=== PATIENT | male | born 1935 | race Caucasian/White ===

== ENCOUNTER 2016-07-14 09:35 | Observation (INO) | payer MEDICARE ==
--- NOTE | 2016-07-14 10:14 | EDM.PDOC ---
ED HPI GENERAL MEDICAL PROBLEM - General Time Seen by Provider: 07/14/16 09:45 Source of Information: Reports: Patient History Limitations: Reports: No Limitations - History of Present Illness INITIAL COMMENTS - FREE TEXT/NARRATIVE: According to patient he has been having anemia for more than a year now. His hemoglobin was down to 7.1 on 07/12/16, his primary care physician ordered 1 unit of PRBCs on 07/12/16. He is here in the emergency room as he woke up today and felt a little dizzy when he was siting on the chair. He claims he feels weak , and dizzy when he stands or walks. no shortness of breath, chest pain or chest tightness. no Blood stools or hematuria. No fever or chills. No cough. Pt claims he has had colonoscopy, upper GI study and bone marrow biopsy and has not found anything abnormal. he does take iron pills. Onset: Today Onset Date: 07/14/16 Severity: Mild Associated Symptoms: Reports: Weakness. Denies: Chest Pain, Cough, Fever/Chills , Headaches, Nausea/Vomiting, Shortness of Breath, Syncope - Related Data Allergies Allergy/AdvReac Type Severity Reaction Status Date / Time No Known Allergies Allergy Verified 07/12/16 14:46 ED ROS GENERAL - Review of Systems Review Of Systems: See Below Constitutional: Denies: Fever, Chills, Weakness, Diaphoresis, Weight Gain HEENT: Reports: Vision Change. Denies: Eye Discharge, Throat Pain, Throat Swelling Respiratory: Denies: Shortness of Breath, Cough, Sputum Cardiovascular: Reports: Lightheadedness. Denies: Chest Pain, Edema GI/Abdominal: Denies: Abdominal Pain, Constipation, Hematochezia, Melena, Nausea , Vomiting : Denies: Frequency, Hematuria, Urgency Musculoskeletal: Denies: Joint Pain, Joint Swelling Skin: Reports: Pallor. Denies: Rash, Erythema ED EXAM, GENERAL - Physical Exam Exam: See Below Exam Limited By: No Limitations General Appearance: Alert, WD/WN, No Apparent Distress Eye Exam: Bilateral Eye: EOMI, PERRL Ears: Normal External Exam, Normal Canal, Hearing Grossly Normal, Normal TMs Ear Exam: Bilateral Ear: TM normal Nose: Normal Inspection, Normal Mucosa, No Blood Throat/Mouth: Normal Inspection, Normal Lips, Normal Teeth, Normal Gums, Normal Oropharynx, Normal Voice, No Airway Compromise Head: Atraumatic, Normocephalic Neck: Normal Inspection, Supple, Non-Tender, Full Range of Motion Respiratory/Chest: No Respiratory Distress, Lungs Clear, Normal Breath Sounds, No Accessory Muscle Use, Chest Non-Tender Cardiovascular: Normal Peripheral Pulses, Regular Rate, Rhythm, No Edema, No Gallop, No JVD, No Murmur, No Rub Peripheral Pulses: 2+: Radial (L), Radial (R) GI/Abdominal: Normal Bowel Sounds, Soft, Non-Tender, No Organomegaly, No Distention, No Abnormal Bruit, No Mass Extremities: Normal Inspection, Normal Range of Motion, Non-Tender, Normal Capillary Refill, No Pedal Edema Neurological: Alert, Oriented, CN II-XII Intact, Normal Cognition, Normal Gait, Normal Reflexes, No Motor/Sensory Deficits Course - Vital Signs Text/Narrative:: Pt's clinical exam is normal, other than mild pallor of skin. His EKG is in NSR. His troponin is negative. His CMP appears normal. His hemoglobin is 7.5. Pt has symptomatic anemia at this point.It does appear like he has had extensive workup including bone marrow biopsy and upper and lower GI scope for his anemia I have admitted as observation for blood transfusion, I have ordered 2 units of PRBC today with premedication. Will recheck hemoglobin on saturday. Meanwhile I have advised patient that he should contact his primary care provide 's office on saturday to have followup. - Orders/Labs/Meds Orders: Active Orders 24 hr Category Date Time Status EKG Documentation Completion [RC] ASDIRECTED Care 07/14/16 10:08 Active COMPREHENSIVE METABOLIC PN,CMP [CHEM] Stat Lab 07/14/16 10:07 Ordered RED BLOOD CELLS LP [BBK] Stat Lab 07/14/16 10:40 Ordered TROPONIN I [CHEM] Stat Lab 07/14/16 10:07 Ordered Transfuse PRBC [Transfuse Red Blood Cells] [COMM] Stat Oth 07/14/16 10:37 Ordered EKG 12 Lead [EK] Routine Ther 07/14/16 10:08 Ordered Labs: Laboratory Tests 07/14/16 07/14/16 Range/Units 10:15 10:15 WBC 4.0 (4.0-11.0) K/uL RBC 2.99 L (4.50-6.50) M/uL Hgb 7.5 L (13.0-18.0) g/dL Hct 25.4 L (40.0-54.0) % MCV 85 (76-96) fL MCH 25.1 L (27.0-32.0) pg MCHC 29.5 L (31.0-35.0) g/dL RDW 15.2 (11.0-16.0) % Plt Count 143 L (150-400) K/uL MPV 9.7 (6.0-10.0) fL Neut % (Auto) 71.6 H (45.0-70.0) % Lymph % (Auto) 14.8 L (20.0-40.0) % [place] % (Auto) 9.8 (3.0-10.0) % Eos % (Auto) 2.3 (1.0-5.0) % Baso % (Auto) 1.5 H (0.0-0.5) % Neut # (Auto) 2.85 (2.00-7.50) K/uL Lymph # (Auto) 0.59 L (1.50-4.00) K/uL [place] # (Auto) 0.39 (0.20-0.80) K/uL Eos # (Auto) 0.09 (0.04-0.40) K/uL Baso # (Auto) 0.06 (0.02-0.10) K/uL Sodium 140 (136-145) mmol/L Potassium 4.0 (3.5-5.1) mmol/L Chloride 100 (98-107) mmol/L Carbon Dioxide 29.5 (21.0-32.0) mmol/L Anion Gap 14.5 (5.0-15.0) mmol/L BUN 9 (8-26) mg/dL Creatinine 1.03 (0.70-1.30) mg/dL Est Cr Clr Drug Dosing TNP Estimated GFR (MDRD) > 60 (>60) MLS/MIN BUN/Creatinine Ratio 8.7 (6-25) Glucose 177 H (74-100) mg/dL Calcium 8.0 L (8.5-10.1) mg/dL Total Bilirubin 0.4 (0.0-1.0) mg/dL AST 55 H (15-37) U/L ALT 53 (12-78) U/L Alkaline Phosphatase 105 (46-116) U/L Troponin I < 0.017 (0.000-0.060) ng/mL Total Protein 6.4 (6.4-8.2) g/dL Albumin 3.5 (3.4-5.0) g/dL Globulin 2.9 (2.2-4.2) g/dL Albumin/Globulin Ratio 1.2 (0.8-2.0) Meds: Medications Discontinued Medications Generic Name Dose Route Start Last Admin Trade Name Faby PRN Reason Stop Dose Admin Acetaminophen 500 mg 07/14/16 10:39 Tylenol Extra Strength PO 07/14/16 10:40 ONETIME ONE Diphenhydramine HCl 25 mg 07/14/16 10:38 Benadryl PO 07/14/16 10:39 ONETIME ONE Departure - Departure Time of Disposition: 11:00 Disposition: Refer to Observation Condition: good Clinical Impression: Symptomatic anemia - Discharge Information - Problem List & Annotations (1) Symptomatic anemia SNOMED Code(s): 860002687 Code(s): D64.9 - ANEMIA, UNSPECIFIED Status: Acute Current Visit: Yes - Problem List Review Problem List Initiated/Reviewed/Updated: Yes - My Orders Last 24 Hours: My Active Orders 07/14/16 10:07 COMPREHENSIVE METABOLIC PN,CMP [CHEM] Stat TROPONIN I [CHEM] Stat 07/14/16 10:08 EKG Documentation Completion [RC] ASDIRECTED EKG 12 Lead [EK] Routine 07/14/16 10:37 Transfuse PRBC [Transfuse Red Blood Cells] [COMM] Stat 07/14/16 10:40 RED BLOOD CELLS LP [BBK] Stat - Assessment/Plan Admission H&P: Please use this note as an admission H&P Last 24 Hours: My Active Orders 07/14/16 10:07 COMPREHENSIVE METABOLIC PN,CMP [CHEM] Stat TROPONIN I [CHEM] Stat 07/14/16 10:08 EKG Documentation Completion [RC] ASDIRECTED EKG 12 Lead [EK] Routine 07/14/16 10:37 Transfuse PRBC [Transfuse Red Blood Cells] [COMM] Stat 07/14/16 10:40 RED BLOOD CELLS LP [BBK] Stat Assessment:: Symptomatic anemia Plan: Pt's clinical exam is normal, other than mild pallor of skin. His EKG is in NSR. His troponin is negative. His CMP appears normal. His hemoglobin is 7.5. Pt has symptomatic anemia at this point.It does appear like he has had extensive workup including bone marrow biopsy and upper and lower GI scope for his anemia I have admitted as observation for blood transfusion, I have ordered 2 units of PRBC today with premedication. Will recheck hemoglobin on saturday. Meanwhile I have advised patient that he should contact his primary care provide 's office on saturday to have followup.
[2016-07-14] MEDS ORDERED: diphenhydrAMINE 25 MG Cap PO ONE (10:38)
[2016-07-14] MEDS ORDERED: Acetaminophen 500 MG Tab PO ONE (10:39)
[2016-07-14 18:28] VITALS: BP 157/77
[2016-07-14] MEDS ORDERED: Sodium Chloride 0.9% 1,000 ML IV SCH (18:30)
--- NOTE | 2016-07-16 10:53 | PCM.DCSUM1 ---
Discharge Summary - Hospital Course Free Text/Narrative:: Pt was admitted with symptomatic anemia with hemoglobin of 7.5. Pt had received 1 unit of PRBC on 07/12/16 as per the orders of his Primary care physician. His symptoms of dizziness and weakness persisted. His Troponins were negative, EKG in sinus rhythm and CMP wa normal. Pt was admitted for blood transfusion. He did receive 2 units of PRBCs feeling better. I have advised him to return to lab on saturday and have his hemoglobin done. Also advised patient to followup with his primary care provider for further workup of anemia. Brief History: Pt presented to emergency room with dizzy spells and has history of anemia for which workup is under progress. His Hemoglobin qwas 7.5, admitted for blood transfusion. - Discharge Data Discharge Date: 07/14/16 Discharge Disposition: Home, Self-Care 01 Condition: Good - Discharge Diagnosis/Problem(s) (1) Symptomatic anemia SNOMED Code(s): 966468611 ICD Code: D64.9 - ANEMIA, UNSPECIFIED Status: Acute - Patient Summary/Data Recommended Follow-up Testing/Procedures: I have advised him to return to lab on saturday and have his hemoglobin done. Also advised patient to followup with his primary care provider for further workup of anemia. - Patient Instructions Diet: Heart Healthy Diet Fluid Restriction: 1500 mL Activity: As Tolerated Driving: May Drive Today Showering/Bathing: May Shower - Discharge Plan Home Medications: Home Meds Aspirin [Halfprin] 81 mg PO DAILY 07/14/16 [History] Calcitriol 0.5 mcg PO DAILY 07/14/16 [History] Carvedilol [Carvedilol] 6.25 mg PO DAILY 07/14/16 [History] Cholecalciferol (Vitamin D3) [Vitamin D3] 3,000 unit PO DAILY 07/14/16 [History] Esomeprazole Magnesium [Nexium] 4 mg PO DAILY 07/14/16 [History] Ferrous Sulfate [Iron] 650 mg PO DAILY 07/14/16 [History] Furosemide [Furosemide] 20 mg PO DAILY 07/14/16 [History] Levothyroxine Sodium [Levothyroxine Sodium] 5 mcg PO DAILY 07/14/16 [History] Levothyroxine Sodium [Levothyroxine Sodium] 200 mcg PO DAILY 07/14/16 [History] Losartan Potassium [Cozaar] 100 mg PO DAILY 07/14/16 [History] Pravastatin Sodium [Pravastatin Sodium] 20 mg PO DAILY 07/14/16 [History] Ticagrelor [Brilinta] 90 mg PO BID 07/14/16 [History] amLODIPine [Norvasc] 10 mg PO DAILY 07/14/16 [History] metFORMIN [Glucophage XR] 500 mg PO BIDMEALS 07/14/16 [History] Referrals: PCP,Unknown [Primary Care Provider] - - Discharge Summary/Plan Comment DC Time >30 min.: Yes - General Info Date of Service: 07/14/16 Functional Status: Reports: tolerating diet, ambulating, urinating - Review of Systems General: Denies: Fever, Weakness, Fatigue HEENT: Denies: sinus congestion, sore throat, visual changes Pulmonary: Denies: shortness of breath, cough, sputum Cardiovascular: Denies: Chest Pain, Lightheadedness Gastrointestinal: Denies: Nausea, Vomiting Musculoskeletal: Denies: joint pain, joint swelling Skin: Denies: pallor, pruritis, rash - Patient Data Vitals - Most Recent: Last Vital Signs Temp 97.8 F 07/14/16 18:27 Pulse 77 07/14/16 18:27 Resp 16 07/14/16 18:27 BP 157/77 H 07/14/16 18:27 Pulse Ox 95 07/14/16 18:27 Med Orders - Current: Current Medications Discontinued Medications Acetaminophen (Tylenol Extra Strength) 500 mg PO ONETIME ONE Stop: 07/14/16 10:40 Last Admin: 07/14/16 12:09 Dose: 500 mg Diphenhydramine HCl (Benadryl) 25 mg PO ONETIME ONE Stop: 07/14/16 10:39 Last Admin: 07/14/16 12:09 Dose: 25 mg Sodium Chloride (Normal Saline) 1,000 mls @ 0 mls/hr IV ASDIRECTED CHELLE PRN Reason: KVO Stop: 07/18/16 18:29 - Exam General: Reports: alert, oriented HEENT: Reports: Pupils equal, Pupils reactive, EOMI, Mucous membr. moist/pink Neck: Reports: supple Lungs: Reports: Clear to auscultation, Normal respiratory effort Cardiovascular: Reports: Regular Rate, Regular Rhythm Abdomen: Reports: bowel sounds present, soft, no tenderness, no distension (Male) Exam: No Hernia, Normal Inspection, Normal Prostate, Circumcised Rectal (Males) Exam: Normal Exam, Normal Rectal Tone, Prostate Normal Extremities: Reports: no edema, normal pulses Skin: Reports: warm, intact, moist Neurological: Reports: no new focal deficit Psy/Mental Status: Reports: alert, normal affect, normal mood *Q Meaningful Use (DIS) - VTE *Q VTE Criteria *Q: - Stroke *Q Stroke Criteria *Q: - AMI *Q AMI Criteria *Q:
== END 2016-07-14 18:30 | disposition home or self-care (01) ==
LOC: LB.ED 09:35 → LB.MS 11:10 → LB.ED 18:30
PROVIDERS: ADMIT Family Medicine; ATTEND Family Medicine
DX: D64.9 Anemia, unspecified (principal); Z79.82 Long term (current) use of aspirin; Z79.899 Other long term (current) drug therapy
CPT/HCPCS: 36415; 36430; 80053; 84484; 85025; 86850; 86900; 86901; 86920; 86922; 93005; 99234; 99285; A9270; G0378; P9016